=== PATIENT | female | born 1985 | race Caucasian/White ===

== ENCOUNTER → 2021-11-22 | Outpatient (CLI) | payer MEDICAID ==
[~2021-11-22] MED LIST: OXYC-272 PO
--- NOTE | 2021-11-22 13:22 | Diagnostic Imaging Report ---
PROCEDURE: US OB SINGLE FETUS <14 WKS. TECHNIQUE: Multiple real-time grayscale images were obtained over the gravid uterus in various projections. INDICATION: Positive test. FINDINGS: There is a single live intrauterine fetus present. [place]-rump length of 4.5 cm consistent with 11 week 3 day gestation. heart rate of 170 bpm. Amniotic sac appears normal. No evidence of subchorionic hemorrhage. Maternal adnexa is normal. IMPRESSION: Single live intrauterine fetus with current biometric measurements average for 11 weeks 3 days. Dictated by: Dictated on workstation # [id number]
== END ==
LOC: RAD 10:00
PROVIDERS: ATTEND Obstetrics & Gynecology
DX: Z32.01 Encounter for pregnancy test, result positive (principal); Z3A.11 11 weeks gestation of pregnancy
CPT/HCPCS: 76801

== ENCOUNTER 2022-05-30 09:48 | Inpatient (IN) | payer MEDICAID ==
[2022-05-30] VITALS (51 sets, daily range): BP systolic 99–167; BP diastolic 51–97
[~2022-05-30] VITALS: Ht 172.7 cm; Wt 92.4 kg
[2022-05-30] MEDS ORDERED: LIDOCAINE/EPI 2% 1:200,00 (XYLOCAINE) 10 ML VIAL INJ PRN (10:15)
[2022-05-30] MEDS ORDERED: OXYTOCIN PRE-MIX DRIP 500 ML IV SCH ×2 (10:15→18:30)
[2022-05-30] MEDS: D5 LR IV SOLUTION 1,000 ML IV SCH ×2 (10:43→19:57)
[2022-05-30 10:44] LABS: BASOPHILS % (AUTO) 0 % (0-10); EOSINOPHILS # (AUTO) 0.1 10^3/uL (0.0-0.3); EOSINOPHILS % (AUTO) 1 % (0-10); HEMATOCRIT 33 % (35-52); HEMOGLOBIN 10.5 g/dL (11.5-16.0); LYMPHOCYTES # (AUTO) 1.9 10^3/uL (1.0-4.0); LYMPHOCYTES % (AUTO) 18 % (12-44); MEAN CORPUSCULAR HEMOGLOBIN 26 pg (25-34); MEAN CORPUSCULAR HGB CONC 32 g/dL (32-36); MEAN CORPUSCULAR VOLUME 82 fL (80-99); MEAN PLATELET VOLUME 11.7 fL (9.0-12.2); MONOCYTES # (AUTO) 0.7 10^3/uL (0.0-1.0); MONOCYTES % (AUTO) 6 % (0-12); NEUTROPHILS # (AUTO) 7.9 10^3/uL (1.8-7.8); NEUTROPHILS % (AUTO) 74 % (42-75); PLATELET COUNT 250 10^3/uL (130-400); WHITE BLOOD COUNT 10.7 10^3/uL (4.3-11.0)
[2022-05-30] MEDS ORDERED: fentaNYL 2 mcg/ml BUPIVA 0.125 100 ML ONE (11:55)
[2022-05-30] MEDS ORDERED: ONDANSETRON 4 MG/2 ML (SDV) Z0FRAN IV PRN (12:45)
[2022-05-30] MEDS ORDERED: LACTATED RINGERS 1,000 ML IV SCH (12:45)
[2022-05-30] MEDS ORDERED: METOCLOPRAMIDE INJ 10 MG/2 ML (REGLAN) IV PRN (12:45)
[2022-05-30] MEDS ORDERED: EPIDURAL (fentaNYL 2 MCG/ML BUPIVA 0.125%)100 ML BAG EPI SCH (12:45)
[2022-05-30] MEDS ORDERED: diphenhydrAMINE 50 MG/ML INJ (BENADRYL) IV PRN (12:45)
[2022-05-30] MEDS ORDERED: NALOXONE 0.4 MG/ML 1 ML (NARCAN) VIAL IV PRN ×3 (12:45→18:30)
--- NOTE | 2022-05-30 13:10 | History & Physical ---
History and Physical Date Seen by Provider: May 30, 2022 Time Seen by Provider: 13:08 This patient is a 36-year-old 3 para 2 female who presents to clinic at 38-3/7 weeks gestation. She is dilated 3 cm and 70%. She has a history of rapid labors and rapid deliveries. She is feeling cramps pain contractions. Her GBS culture was negative. Decision made to send her to labor and delivery for management as it appears that she is clearly in labor. Patient denies rupture membranes or bleeding. She has had no problems with this . Allergies are none Medications are vitamins Medical social and surgical histories are per the antepartum record HEENT exam is normal Neck is supple no lymphadenopathy no thyromegaly Abdomen is gravid soft nontender nondistended Extremities show no clubbing or cyanosis. There is no Homans' sign. Pelvic exam in clinic shows cervix 3 cm dilated 70% effaced repeat exam on admission shows a cervix 4 cm dilated 80% effaced -1 station vertex presentation. Amniotomy was performed with release of copious clear fluid Assessment and plan 38-3/7 weeks gestation in early labor with a history of rapid delivery. Plan is for labor management and vaginal delivery 38 weeks gestation admitted in labor Allergies and Home Medications Allergies Coded Allergies: No Known Drug Allergies (Unverified , 03/11/15) Patient Home Medication List Home Medication List Reviewed: Yes Oxycodone Hcl/Acetaminophen (Percocet 10-325 Mg Tablet) 1 Tab Tablet, 1-2 TAB PO Q4H Prescribed by: LEE SANDOVAL on 03/17/15 1230 LEE HERNANDEZ MD May 30, 2022 13:10
[2022-05-30] MEDS ORDERED: oxyCODONE/APAP 5/325MG (PERCOCET 5) TABLET PO PRN (18:30)
[2022-05-30] MEDS ORDERED: BENZOCAINE/MENTHOL (DERMOPLAST) 56 ML CAN TP PRN (18:30)
[2022-05-30] MEDS ORDERED: ONDANSETRON 4 MG/2 ML (SDV) Z0FRAN IVP PRN (18:30)
[2022-05-30] MEDS ORDERED: TETANUS,DIPTH,PERTUSS P/F (BOOSTRIX) 0.5 ML VIAL IM ONE (18:30)
[2022-05-30] MEDS: CATHETER FLUSH 10 ML SYR IV SCH (19:58)
[2022-05-30] MEDS: DOCUSATE SODIUM 100 MG (COLACE) CAP PO SCH (20:24)
[2022-05-30] MEDS: KETOROLAC 30 MG/ML VIAL IVP SCH (20:24)
[2022-05-30] MEDS ORDERED: WITCH HAZEL(TUCKS) 40 EA JAR TOP PRN (21:15)
[2022-05-31] MEDS: CATHETER FLUSH 10 ML SYR IV SCH (00:05)
[2022-05-31 00:10] VITALS: BP 114/57
[2022-05-31] MEDS: KETOROLAC 30 MG/ML VIAL IVP SCH ×2 (04:23→04:27)
[2022-05-31 04:27] VITALS: BP 108/53
--- NOTE | 2022-05-31 07:32 | OPERATIVE REPORT ---
DATE OF SERVICE: 05/30/2022 DELIVERY NOTE The patient delivered by term spontaneous vaginal delivery at 38 weeks gestation, a viable female with Apgars of 8 and 9 at 1 and 5 minutes respectively, weight of 7 pounds 4 ounces. Cord blood pH of 7.28 and a time of 1739. The was bulb suctioned on delivery of the head and again on completion of delivery. A relatively tight nuchal cord was released. The delivery was completed. was bulb suctioned again. Umbilical cord was doubly clamped, when pulseless and father cut the cord, the baby was passed to mom's abdomen. Cord bloods were obtained. The placenta delivered spontaneously [place]. It was normal with a 3-vessel cord. The cervix, vagina, rectum, and perineum were examined and found intact, except for a small first-degree perineal laceration crossing the posterior fourchette. This was repaired under epidural analgesia with a single suture of 3-0 Rapide in the usual manner. The patient tolerated the delivery and the repair well. Blood loss was around 150 mL. The patient remained in the LDR for recovery. The baby remained with the mom. Sponge and needle counts were correct. Job ID: [id number] DocumentID: [id number] Dictated Date: 05/31/2022 07:13:39 [place] Date: 05/31/2022 07:31:44 Dictated By: LEE HERNANDEZ MD
--- NOTE | 2022-05-31 07:50 | Progress Note ---
Standard Progress Note Progress Notes/Assess & Plan Date Seen by a Provider: May 31, 2022 Time Seen by a Provider: 07:49 Progress/Assessment & Plan This patient is without complaint. She is ambulating, voiding, tolerating oral intake well and has good pain control. Patient is requesting discharge home. Vital Signs Date Time Temp Pulse Resp B/P (MAP) Pulse Ox O2 Delivery O2 Flow Rate FiO2 05/31/22 04:27 36.2 88 18 108/53 (71) 98 Room Air 05/31/22 00:10 36.3 95 18 114/57 (76) 99 Room Air 05/30/22 20:57 36.6 92 18 125/63 (83) Room Air 05/30/22 19:45 37.1 86 20 121/65 (83) Room Air 05/30/22 19:20 36.6 93 18 114/69 (84) Room Air 05/30/22 19:05 91 20 112/65 (81) Room Air 05/30/22 18:50 101 20 127/61 (83) Room Air 05/30/22 18:35 37.4 95 20 127/67 (87) Room Air 05/30/22 18:20 37.3 98 20 135/97 (110) 100 Room Air 05/30/22 18:00 37.6 95 20 116/56 (76) 100 Room Air 05/30/22 17:50 37.5 102 20 167/66 (99) 100 Room Air 05/30/22 17:30 37.3 87 20 124/75 (91) 100 Room Air 05/30/22 17:14 91 20 150/82 (104) 100 Room Air 05/30/22 17:00 36.4 95 20 108/51 (70) 98 Room Air 05/30/22 16:45 81 20 105/55 (72) 97 Room Air 05/30/22 16:30 92 20 99/56 (70) 97 Room Air 05/30/22 16:15 85 20 119/68 (85) 100 Room Air 05/30/22 16:00 93 20 109/57 (74) 100 Room Air 05/30/22 15:45 85 20 116/74 (88) 100 Room Air 05/30/22 15:30 88 20 117/66 (83) 100 Room Air 05/30/22 15:15 90 20 112/65 (81) 100 Room Air 05/30/22 15:00 89 20 118/67 (84) 99 Room Air 05/30/22 14:45 89 20 119/67 (84) 99 Room Air 05/30/22 14:30 85 20 110/68 (82) 100 Room Air 05/30/22 14:15 36.1 90 20 113/64 (80) 100 Room Air 05/30/22 14:00 101 20 118/59 (78) 100 Room Air 05/30/22 13:52 116 20 108/60 (76) 100 Room Air 05/30/22 13:48 95 20 114/64 (81) 100 Room Air 05/30/22 13:45 93 20 120/61 (80) 100 Room Air 05/30/22 13:36 83 20 117/66 (83) 100 Room Air 05/30/22 13:32 81 20 113/64 (80) 100 Room Air 05/30/22 13:28 90 20 110/64 (79) 99 Room Air 05/30/22 13:24 109 20 109/60 (76) 100 Room Air 05/30/22 13:20 112 20 116/63 (80) 99 Room Air 05/30/22 13:17 99 20 114/63 (80) 99 Room Air 05/30/22 13:12 98 20 115/69 (84) 100 Room Air 05/30/22 13:08 89 20 120/69 (86) 100 Room Air 05/30/22 13:05 86 20 115/68 (84) 100 Room Air 05/30/22 13:00 94 20 113/65 (81) 100 Room Air 05/30/22 12:55 98 20 114/63 (80) 100 Room Air 05/30/22 12:52 97 20 114/65 (81) 99 Room Air 05/30/22 12:49 96 20 126/69 (88) 100 Room Air 05/30/22 12:45 95 20 119/66 (83) 100 Room Air 05/30/22 12:40 36.2 90 20 128/71 (90) 100 Room Air 05/30/22 12:36 94 20 125/71 (89) 100 Room Air 05/30/22 12:32 101 20 118/64 (82) 100 Room Air 05/30/22 12:28 101 20 123/65 (84) 98 Room Air 05/30/22 12:23 105 20 126/72 (90) 98 Room Air 05/30/22 12:20 107 20 125/72 (89) 98 Room Air 05/30/22 12:10 88 20 120/67 (84) 100 Room Air 05/30/22 11:55 85 20 112/64 (80) Room Air 05/30/22 11:25 79 20 104/64 (77) Room Air 05/30/22 10:50 36.4 86 20 119/61 (80) Room Air Vital signs are stable. Patient is afebrile. Fundus is firm below the umbilicus and nontender. Extremities show no clubbing or cyanosis. There is no Homans' sign. There are some pretibial pitting edema that would be normal. Pelvic exam is deferred Assessment and plan day #1 status post term spontaneous vaginal delivery doing well. Plan is for discharge home today or tomorrow as patient prefers Final Diagnosis 38-week spontaneous vaginal delivery LEE HERNANDEZ MD May 31, 2022 07:50
--- NOTE | 2022-05-31 07:51 | Discharge Inst-Surgical ---
Discharge Inst-Surgical Depart Medication/Instructions New, Converted or Re-Newed RX: Transmitted to Pharmacy Consults/Follow Up Orders & Referrals Follow Up Appt: Call to make follow up appt. for patient in 4 weeks. Activity Per routine post vaginal delivery instructions. Prescriptions have been sent to patient's pharmacy from my officeFor Percocet Motrin and Colace Diet as tolerated Patient may shower or tub bathe as desired. Activity Activity as Tolerated: No Diet Discharge Diet: No Restrictions LEE HERNANDEZ MD May 31, 2022 07:51
[2022-05-31] MEDS: DOCUSATE SODIUM 100 MG (COLACE) CAP PO SCH (08:50)
[2022-05-31 08:51] VITALS: BP 98/56
[2022-05-31] MEDS ORDERED: IBUPROFEN 800 MG (MOTRIN) TAB PO ONE (11:39)
[2022-05-31] MEDS: IBUPROFEN 800 MG (MOTRIN) TAB PO SCH ×2 (11:41→17:28)
--- NOTE | 2022-05-31 12:20 | Anesthesia-Regional Post-Op ---
Regional Patient Condition Mental Status: Alert, Oriented x3 Circulation: Same as Pre-Op Headache: Absent Sensation: Full Recovery Motor Block: Absent Post Op Complications Complications None Follow Up Care/Instructions Patient Instructions None needed. Anesthesia/Patient Condition Patient is doing well, no complaints, stable vital signs, no apparent adverse anesthesia problems. No complications reported per nursing. LOLA HOGAN CRNA May 31, 2022 12:20
[2022-05-31 15:57] VITALS: BP 114/61
== END 2022-05-31 19:40 | disposition home or self-care (01) | DRG 807 ==
LOC: LDRP 09:48
PROVIDERS: ADMIT Obstetrics & Gynecology; ATTEND Obstetrics & Gynecology
PROC: 10E0XZZ Delivery of Products of Conception, External Approach (ICD-10-PCS; principal; 2022-05-30)
PROC: 0HQ9XZZ Repair Perineum Skin, External Approach (ICD-10-PCS; 2022-05-30)
DX: O70.0 First degree perineal laceration during delivery (principal); Z37.0 Single live birth; O69.81X0 Labor and delivery complicated by cord around neck, without compression, not applicable or unspecified; Z3A.38 38 weeks gestation of pregnancy
CPT/HCPCS: 36415; 85025; 86850; 86900; 86901